=== PATIENT | male | born 1990 | race African-American/Black ===

== ENCOUNTER 2017-01-13 18:37 | Emergency (ER) | payer SELFPAY ==
[~2017-01-13] VITALS: Ht 188 cm; Wt 69.4 kg
[2017-01-13 19:13] VITALS: BP 123/56
--- NOTE | 2017-01-13 19:37 | PHYS DOC ---
Past Medical History Past Medical History: Asthma, Bipolar, Seizure, Other Additional Past Medical Histor: ADHD Past Surgical History: Other Additional Past Surgical Histo: NECK SX, RIGHT AND LEFT KNEE SX Alcohol Use: Occasionally Drug Use: None Adult General Chief Complaint Chief Complaint: CHEST WALL PAIN HPI HPI Patient is a 26 year old male presents emergency department stating that he is out of cough for the last 2-4 days. He states that he is having left chest discomfort. He states that he has had a nonproductive cough. Denies any fever, chills or any nausea or vomiting. He has been taken Tylenol for the pain and discomfort without relief. Review of Systems Review of Systems Constitutional: Denies fever or chills [] Eyes: Denies change in visual acuity, redness, or eye pain [] HENT: Denies nasal congestion or sore throat [] Respiratory: cough denies shortness of breath [] Cardiovascular: No additional information not addressed in HPI [] GI: Denies abdominal pain, nausea, vomiting, bloody stools or diarrhea [] : Denies dysuria or hematuria [] Musculoskeletal: Denies back pain or joint pain [] Integument: Denies rash or skin lesions [] Neurologic: Denies headache, focal weakness or sensory changes [] Allergies Allergies Allergies Coded Allergies Type Severity Reaction Last Updated Verified No Known Drug Allergies 03/16/14 No Physical Exam Physical Exam Constitutional: Well developed, well nourished, no acute distress, non-toxic appearance. [] HENT: Normocephalic, atraumatic, bilateral external ears normal, oropharynx moist, no oral exudates, nose normal. Bilateral tympanic membranes appear to be normal. Throat with no erythematous no exudate noted. Eyes: PERRLA, EOMI, conjunctiva normal, no discharge. [] Neck: Normal range of motion, no tenderness, supple, no stridor. [] Cardiovascular:Heart rate regular rhythm, no murmur. Chest wall tenderness noted with palpation to the left side. Lungs & Thorax: Bilateral breath sounds clear to auscultation [] Skin: Warm, dry, no erythema, no rash. [] Back: No tenderness Extremities: No tenderness, no cyanosis, no clubbing, ROM intact, no edema. [] Neurologic: Alert and oriented X 3, normal motor function, normal sensory function, no focal deficits noted. [] Psychologic: Affect normal, judgement normal, mood normal. [] Current Patient Data Vital Signs Vital Signs Date Time Temp Pulse Resp B/P Pulse Ox O2 Delivery O2 Flow Rate FiO2 01/13/17 19:13 98.2 74 16 98 Room Air 98.2 EKG EKG EKG completed at 1923. Heart rate 58 sinus rhythm noted no STEMI noted per Dr. Holcomb. [] Radiology/Procedures Radiology/Procedures [] Course & Med Decision Making Course & Med Decision Making Pertinent Labs and Imaging studies reviewed. (See chart for details) Chest x-ray was negative for any abnormalities per Dr. Holcomb. Patient will be discharged home recommendations for ibuprofen 800 mg every 8 hours. Warm moist packs to the left chest wall. Patient was also encouraged take Mucinex DM over- the-counter to help with his cough. Patient was provided with signs and symptoms to return back to emergency department. Patient will be discharged home in stable condition. Patient agrees with discharge instructions treatment regimens and follow-up recommendations. [] Dragon Disclaimer Dragon Disclaimer This electronic medical record was generated, in whole or in part, using a voice recognition dictation system. Departure Departure Impression: Primary Impression: Chest wall pain Disposition: HOME, SELF-CARE Condition: STABLE Referrals: UNKNOWN PCP NAME (PCP) Patient Instructions: Chest Wall Pain, [id number] Additional Instructions: Activity as tolerated. Ibuprofen 800 mg every 8 hours with food. Stop taking few develop an upset stomach. Warm moist packs to the left chest wall. Mucinex DM [id number] will also help with cough and congestion. Follow-up through primary care physician next 3-5 days. Return back to emergency department sign symptoms of become worse. DELFINA BAUTISTA NP Jan 13, 2017 19:37
--- NOTE | 2017-01-14 06:43 | EKG ---
[facility] [address] [place] [address] Test Date: 2017-01-13 Test Time: 19:23:21 Pat Name: NAV OBRIEN Department: Room: Gender: M Biological Chemist: : 1990 Requested By: DELFINA BAUTISTA Order Number: [id number] Reading MD: Measurements Intervals [place] Rate: 58 P: 56 WI: 146 QRS: 51 QRSD: 104 T: 25 QT: 388 QTc: 380 Interpretive Statements SINUS RHYTHM INCOMPLETE RIGHT BUNDLE BRANCH BLOCK NO SPECIFIC ECG ABNORMALITIES RI6.01 No previous ECG available for comparison
--- NOTE | 2017-01-14 08:21 | RAD ---
Chest, 2 views, 01/13/2017: History: Cough, pain The heart size and pulmonary vascularity are normal. No pulmonary infiltrates are seen. There is no evidence of pleural fluid. IMPRESSION: No acute cardiopulmonary abnormality is detected.
== END 2017-01-13 20:11 | disposition home or self-care (01) ==
LOC: ER 18:37
DX: R07.89 Other chest pain (principal); J45.909 Unspecified asthma, uncomplicated
CPT/HCPCS: 71020; 93005; 99284-25

== ENCOUNTER 2020-06-29 15:49 | Emergency (ER) | payer SELFPAY ==
[~2020-06-29] VITALS: Ht 188 cm; Wt 69.0 kg
[2020-06-29] MEDS ORDERED: TETRACAINE 0.5% OPHTH SOLUTION 4ML BOTTLE. ONE (15:59)
[2020-06-29] MEDS ORDERED: FLUORESCEIN OPHTH TEST STRIP. OU ONE (16:00)
--- NOTE | 2020-06-29 16:36 | RAD ---
Exam: CT head and orbits without contrast INDICATION: Blurry vision TECHNIQUE: Sequential axial images through the head and orbits were obtained without the administration of IV contrast. Comparisons: None FINDINGS: Head: No focal parenchymal lesion or hemorrhage is identified. There is no midline shift or sulcal effacement. No acute vascular territory infarction is identified. Felipe-white distinction is preserved. The ventricular system is within normal limits without compression hydrocephalus. The basal cisterns are well maintained. Mild mucosal thickening noted within the right maxillary sinus. No acute fractures. Orbits: Globes, and extraocular muscles are within normal limits. The optic nerve sheath complex has a normal appearance bilaterally. The intraconal and extraconal fat appear normal. No inflammation in the preseptal fat. IMPRESSION: 1. No acute intracranial abnormality. Sinus disease as described above. 2. Unremarkable appearance of the orbits bilaterally. Exposure: One or more of the following in the visualized dose reduction techniques were utilized for this examination: 1. Automated exposure control 2. Adjustment of the MA and/or KV according to patient size Use of iterative of reconstructive technique Electronically signed by: Caleb Hatch MD (06/29/2020 4:33 PM) [id number]
[2020-06-29 17:00] VITALS: BP 115/66
[2020-06-29] MEDS ORDERED: TETRACAINE 0.5% OPHTH SOLUTION 4ML BOTTLE. OU ONE (17:00)
--- NOTE | 2020-06-29 18:00 | PHYS DOC ---
Past Medical History Past Medical History: Asthma, Bipolar, Seizure, Other Additional Past Medical Histor: ADHD Past Surgical History: Other Additional Past Surgical Histo: NECK SX, RIGHT AND LEFT KNEE SX Smoking Status: Current Some Day Smoker Alcohol Use: Occasionally Drug Use: None General Adult EDM: Chief Complaint: VISION PROBLEM HPI: HPI: Patient is a 30 year old [f__sex] who presents with [] Review of Systems: Review of Systems: Constitutional: Denies fever or chills. [] Eyes: Denies change in visual acuity. [] HENT: Denies nasal congestion or sore throat. [] Respiratory: Denies cough or shortness of breath. [] Cardiovascular: Denies chest pain or edema. [] GI: Denies abdominal pain, nausea, vomiting, bloody stools or diarrhea. [] : Denies dysuria. [] Musculoskeletal: Denies back pain or joint pain. [] Integument: Denies rash. [] Neurologic: Denies headache, focal weakness or sensory changes. [] Endocrine: Denies polyuria or polydipsia. [] Lymphatic: Denies swollen glands. [] Psychiatric: Denies depression or anxiety. [] Heart Score: Risk Factors: Risk Factors: DM, Current or recent (<one month) smoker, HTN, HLP, family history of CAD, obesity. Risk Scores: Score 0 - 3: 2.5% MACE over next 6 weeks - Discharge Home Score 4 - 6: 20.3% MACE over next 6 weeks - Admit for Clinical Observation Score 7 - 10: 72.7% MACE over next 6 weeks - Early Invasive Strategies Current Medications: Current Medications Medications (Trade) Dose Ordered Sig/Mich Start Time Stop Time Status Last Admin Dose Admin Fluorescein Sodium (Ful-Rahel) 1 strip 1X ONCE 06/29/20 16:00 06/29/20 16:01 DC 06/29/20 16:59 1 STRIP Tetracaine HCl (Tetracaine) 1 drop 1X ONCE 06/29/20 17:00 06/29/20 17:06 DC 06/29/20 17:02 1 DROP Allergies: Allergies: Allergies Coded Allergies Type Severity Reaction Last Updated Verified No Known Drug Allergies 03/16/14 No Physical Exam: PE: Constitutional: Well developed, well nourished, no acute distress, non-toxic appearance. [] HENT: Normocephalic, atraumatic, bilateral external ears normal, oropharynx moist, no oral exudates, nose normal. [] Eyes: PERRLA, EOMI, conjunctiva normal, no discharge. [] Neck: Normal range of motion, no tenderness, supple, no stridor. [] Cardiovascular:Heart rate regular rhythm, no murmur [] Lungs & Thorax: Bilateral breath sounds clear to auscultation [] Abdomen: Bowel sounds normal, soft, no tenderness, no masses, no pulsatile masses. [] Skin: Warm, dry, no erythema, no rash. [] Back: No tenderness, no CVA tenderness. [] Extremities: No tenderness, no cyanosis, no clubbing, ROM intact, no edema. [] Neurologic: Alert and oriented X 3, normal motor function, normal sensory function, no focal deficits noted. [] Psychologic: Affect normal, judgement normal, mood normal. [] Current Patient Data: Vital Signs: Vital Signs Date Time Temp Pulse Resp B/P (MAP) Pulse Ox O2 Delivery O2 Flow Rate FiO2 06/29/20 15:49 98.7 58 18 115/72 (86) 100 Room Air 98.7 EKG: EKG: [] Radiology/Procedures: Radiology/Procedures: IMAGING REPORT Signed PATIENT: NAV OBRIEN ACCOUNT: [id number] : 1990 LOCATION: ER AGE: 30 SEX: M EXAM STATUS: REG ER ORD. PHYSICIAN: STORM CHACON DO REASON: blurry vision PROCEDURE: CT HEAD WO CONTRAST Exam: CT head and orbits without contrast INDICATION: Blurry vision TECHNIQUE: Sequential axial images through the head and orbits were obtained without the administration of IV contrast. Comparisons: None FINDINGS: Head: No focal parenchymal lesion or hemorrhage is identified. There is no midline shift or sulcal effacement. No acute vascular territory infarction is identified. Felipe-white distinction is preserved. The ventricular system is within normal limits without compression hydrocephalus. The basal cisterns are well maintained. Mild mucosal thickening noted within the right maxillary sinus. No acute fractures. Orbits: Globes, and extraocular muscles are within normal limits. The optic nerve sheath complex has a normal appearance bilaterally. The intraconal and extraconal fat appear normal. No inflammation in the preseptal fat. IMPRESSION: 1. No acute intracranial abnormality. Sinus disease as described above. 2. Unremarkable appearance of the orbits bilaterally. Exposure: One or more of the following in the visualized dose reduction techniques were utilized for this examination: 1. Automated exposure control 2. Adjustment of the MA and/or KV according to patient size Use of iterative of reconstructive technique Electronically signed by: Caleb Broderick MD (06/29/2020 4:33 PM) [id number] DICTATED and SIGNED BY: CALEB BRODERICK MD DATE: 06/29/20 1633 Course & Med Decision Making: Course & Med Decision Making Pertinent Labs and Imaging studies reviewed. (See chart for details) [] Dragon Disclaimer: Dragon Disclaimer: This electronic medical record was generated, in whole or in part, using a voice recognition dictation system. Departure Departure Impression: Primary Impression: Blurry vision, bilateral Additional Impression: Subconjunctival hemorrhage of left eye Disposition: 01 HOME, SELF-CARE Condition: STABLE Referrals: NO PCP (PCP) ALPHONSO POWERS MD Patient Instructions: Subconjunctival Hemorrhage Justicifation of Admission Dx: Justifications for Admission: Justification of Admission Dx: N/A STORM CHACON DO Jun 29, 2020 18:00
== END 2020-06-29 18:40 | disposition home or self-care (01) ==
LOC: ER 15:49
DX: H11.32 Conjunctival hemorrhage, left eye (principal); J45.909 Unspecified asthma, uncomplicated; F31.9 Bipolar disorder, unspecified; F17.200 Nicotine dependence, unspecified, uncomplicated
CPT/HCPCS: 70450; 70480; 99285-25